=== PATIENT | male | born 1990 | race Caucasian/White ===

== ENCOUNTER 2021-04-24 06:21 | Emergency (ER) | payer OTHER ==
[~2021-04-24] VITALS: Ht 193 cm; Wt 117.0 kg
[2021-04-24 06:22] VITALS: BP 143/98
--- NOTE | 2021-04-24 06:43 | NUR ---
PT C/O OF EAR PAIN FROM SLEEPING WITH EARBUD AND PUSHING EARBUD FARTHER IN WITH A CUETIP WHILE TRYING TO TAKE IT OUT. PT REPORTS PAIN WHEN OPENING JAW. ATTACHD TO MONOITORS, VSS, JUANISN, PT ON PHONE. WCTM
== END 2021-04-24 08:13 | disposition home or self-care (01) ==
LOC: ED 08:05
DX: T16.1XXA Foreign body in right ear, initial encounter (principal); X58.XXXA Exposure to other specified factors, initial encounter; Y93.89 Activity, other specified; Y92.89 Other specified places as the place of occurrence of the external cause; Y99.8 Other external cause status
CPT/HCPCS: 69200; 99284